=== PATIENT | male | born 1995 | race Caucasian/White ===

== ENCOUNTER 2018-09-26 20:52 | Emergency (ER) | payer OTHER ==
[~2018-09-26] VITALS: Ht 188 cm; Wt 136.1 kg
[2018-09-26 20:53] VITALS: BP 131/81
[2018-09-26] MEDS ORDERED: PROAIR HFA8.5 GM INH (22:00)
== END 2018-09-26 22:07 | disposition home or self-care (01) ==
LOC: M.ERS 20:52
DX: Z77.098 Contact with and (suspected) exposure to other hazardous, chiefly nonmedicinal, chemicals (principal); J45.909 Unspecified asthma, uncomplicated